=== PATIENT | male | born 1995 | race Two or more races ===

== ENCOUNTER 2019-12-15 04:52 | Emergency (ER) | payer OTHER ==
[~2019-12-15] VITALS: Ht 177.8 cm; Wt 68.0 kg
--- NOTE | 2019-12-15 05:03 | NUR ---
PATIENT CAME TO ER BED 10 C/O ASSUALTED BY PEOPLE HE KNOWS. PATIENT STATES, "MY NOSE IS ALL THE WAY ON THE RIGHT SIDE". PATIENT STATES THAT IT IS DIFFICULT TO BREATH THROUGH HIS NOSE. DEFORMITY NOTED ON THE NOSE. NOSE IS SHIFTED TOWARDS THE RIGHT SIDE. PATIENT IS AAOX4. NO SOB. BREATHING EVENLY AND UNLABORED ON ROOM AIR.
[2019-12-15] MEDS ORDERED: HYDROCODONE/APAP 10/325MG 1 EA TABLET ONE (05:12)
--- NOTE | 2019-12-15 05:13 | NUR ---
PATIENT GOT TAKEN TO CT.
--- NOTE | 2019-12-15 05:20 | NUR ---
[employer] AT BEDSIDE
--- NOTE | 2019-12-15 05:28 | NUR ---
[employer] AT BEDSIDE FOR QUESTIONING.
[2019-12-15] MEDS ORDERED: HYDROCODONE/APAP 10/325MG 1 EA TABLET PO ONE (05:30)
--- NOTE | 2019-12-15 06:23 | NUR ---
pt ok to discharge per dr bridges. Patient discharged to home in stable condition. Written and verbal after care instructions given. Patient verbalizes understanding of instruction. Patient is awake and alert to self, day, and place. pt ambulatory with a steady gait
[2019-12-15 06:26] VITALS: BP 128/77
== END 2019-12-15 06:26 | disposition home or self-care (01) ==
LOC: ER 04:54
DX: S02.2XXA Fracture of nasal bones, initial encounter for closed fracture (principal); F17.200 Nicotine dependence, unspecified, uncomplicated; Y08.89XA Assault by other specified means, initial encounter; Y93.89 Activity, other specified; Y92.89 Other specified places as the place of occurrence of the external cause; Y99.8 Other external cause status
CPT/HCPCS: 70450; 70486; 72125; 99285; A6403

== ENCOUNTER 2020-09-06 20:36 | Emergency (ER) | payer OTHER ==
--- NOTE | 2020-09-06 21:37 | NUR ---
CALLED FOR TRIAGE , NO ANSWER
--- NOTE | 2020-09-06 22:00 | NUR ---
CALLED FOR TRIAGE , NO ANSWER
== END 2020-09-06 22:16 | disposition left against medical advice (07) ==
LOC: ER 20:40
DX: Z53.21 Procedure and treatment not carried out due to patient leaving prior to being seen by health care provider (principal)

== ENCOUNTER 2021-04-07 16:46 | Emergency (ER) | payer OTHER ==
[~2021-04-07] VITALS: Ht 177.8 cm; Wt 65.8 kg
[2021-04-07 18:43] VITALS: BP 131/84
[2021-04-07] MEDS ORDERED: ACETAMINOPHEN ES 500 MG TABLET PO ONE (20:30)
[2021-04-07] MEDS ORDERED: CEPH500T PO (22:42)
[2021-04-07] MEDS ORDERED: ACET-2605 PO (22:45)
[2021-04-07] MEDS ORDERED: CEFTRIAXONE 1 G VIAL IM ONE (23:00)
[2021-04-07] MEDS ORDERED: ACETAMINOPHEN ES 500 MG TABLET ONE (23:06)
[2021-04-07] MEDS ORDERED: LIDOCAINE /MPF 1% VIAL 5 ML VIAL ONE (23:06)
[2021-04-07] MEDS ORDERED: CEFTRIAXONE 1 G VIAL ONE (23:06)
--- NOTE | 2021-04-07 23:27 | NUR ---
Patient discharged to home in stable condition. rx and Written and verbal after care instructions given. Patient verbalizes understanding of instruction.
== END 2021-04-07 23:40 | disposition home or self-care (01) ==
LOC: ER 16:49
DX: S81.812A Laceration without foreign body, left lower leg, initial encounter (principal); S81.811A Laceration without foreign body, right lower leg, initial encounter; F17.200 Nicotine dependence, unspecified, uncomplicated; V00.131A Fall from skateboard, initial encounter; Y93.51 Activity, roller skating (inline) and skateboarding; Y92.331 Roller skating rink as the place of occurrence of the external cause; Y99.8 Other external cause status
CPT/HCPCS: 12004; 73590 ×2; 96372; 99283; A6403; J0696; J3490

== ENCOUNTER 2021-04-21 08:47 | Emergency (ER) | payer OTHER ==
[~2021-04-21] VITALS: Ht 177.8 cm; Wt 72.6 kg
[~2021-04-21 08:47] MED LIST: ACET-2605 PO; CEPH500T PO
[2021-04-21 08:56] VITALS: BP 126/80
--- NOTE | 2021-04-21 09:47 | NUR ---
Patient discharged to home in stable condition. Written and verbal after care instructions given. Patient verbalizes understanding of instruction.
== END 2021-04-21 09:47 | disposition home or self-care (01) ==
LOC: ER 08:51
DX: S81.812D Laceration without foreign body, left lower leg, subsequent encounter (principal); F17.200 Nicotine dependence, unspecified, uncomplicated; V00.131D Fall from skateboard, subsequent encounter